=== PATIENT | female | born 1990 | race Caucasian/White ===

== ENCOUNTER 2019-04-05 09:30 | Outpatient (CLI) | payer MEDICAID ==
--- NOTE | 2019-04-05 10:37 | MMO ---
Bilateral MAMMO Bilat Diag [facility]. CLINICAL HISTORY: Patient is 28 years old and is seen for diagnostic exam,lump or thickening and bloody discharge in the right breast. The patient has the following family history of breast cancer: maternal aunt, at age 37, malignant (generic) and cousin female, at age 35, malignant (generic). The patient has no personal history of cancer. VIEWS: The views performed were: bilateral craniocaudal with tomosynthesis; bilateral mediolateral oblique with tomosynthesis; and bilateral mediolateral with tomosynthesis. FILMS COMPARED: The present examination has been compared to a prior imaging study performed at [facility] on 04/05/2019. This study has been interpreted with the assistance of computer-aided detection. MAMMOGRAM FINDINGS: The breasts are heterogeneously dense, which could obscure a lesion on mammography. Finding 1: There are no mammographic abnormalities in the area of palpable concern. A simple cyst is seen in this region sonographically. Finding 2: There are no mammographic or sonographic abnormalities to explain the patient's reported bloody right nipple discharge. The patient is referred back to her clinician. Negative imaging findings should not preclude further evaluation if clinical findings are suspicious. There are no suspicious masses, suspicious calcifications, or areas of architectural distortion. IMPRESSION: THERE ARE NO MAMMOGRAPHIC ABNORMALITIES TO EXPLAIN THE PATIENT'S REPORTED BLOODY RIGHT NIPPLE DISCHARGE. SURGICAL CONSULTATION SHOULD BE CONSIDERED. THE RESULTS OF THIS EXAM WERE SENT TO THE PATIENT. ACR BI-RADS Category 2 - Benign finding MAMMOGRAPHY NOTE: 1. A negative mammogram report should not delay a biopsy if a dominant of clinically suspicious mass is present. 2. Approximately 10% to 15% of breast cancers are not detected by mammography. 3. Adenosis and dense breasts may obscure an underlying neoplasm. Reported by: BC LUGO MD Electonically Signed: [id number]
--- NOTE | 2019-04-05 12:12 | ULT ---
LIMITED RIGHT BREAST ULTRASOUND: Date: 04/05/19 PROVIDED CLINICAL HISTORY: Right breast palpable abnormality and bloody right nipple discharge. FINDINGS: Limited sonographic interrogation of the right breast in the region of palpable concern demonstrates a small simple cyst measuring about 3 mm. Limited sonographic interrogation of the retroareolar region demonstrates no evidence for intraductal mass. IMPRESSION: BI-RADS Category 2 - Benign findings. No imaging findings to explain the patient's bloody nipple disc harge. Surgical consultation should be considered. POS: OFF
== END 2019-04-05 09:31 | disposition home or self-care (01) ==
LOC: BICMAMMO 09:30
PROVIDERS: ATTEND Nurse Practitioner Women's Health
DX: N63.10 Unspecified lump in the right breast, unspecified quadrant (principal)
CPT/HCPCS: 77066; G0279